=== PATIENT | male | born 1955 | race Caucasian/White ===

== ENCOUNTER 2018-07-28 06:48 | Inpatient (IN) | payer OTHER ==
[2018-07-28] MEDS ORDERED: CEFAZOLIN 1 GM INJ (07:00)
[2018-07-28] MEDS ORDERED: DEXAMETHASONE 4 MG/ML 5 ML INJ (07:00)
[2018-07-28] MEDS ORDERED: ONDANSETRON 4 MG INJ (07:00)
[2018-07-28] MEDS ORDERED: ONDANSETRON 4 MG INJ IV ×2 (08:00→12:30)
[2018-07-28] MEDS ORDERED: IPRATROPIUM (NEB) 0.5 MG/2.5 ML AMP HHN ×2 (08:00→12:30)
[2018-07-28] MEDS ORDERED: LABETALOL HCL 20MG INJ IV ×2 (08:00→12:30)
[2018-07-28] MEDS ORDERED: LEVALBUTEROL (NEB) 1.25 MG/0.5 ML AMP HHN ×2 (08:00→12:30)
[2018-07-28] MEDS ORDERED: MEPERIDINE 25 MG INJ IV ×2 (08:00→12:30)
[2018-07-28] MEDS ORDERED: DIPHENHYDRAMINE 50 MG INJ IV ×2 (08:00→12:30)
[2018-07-28] MEDS ORDERED: HYDROmorphONE 1 MG/5 ML IV SYRINGE IV ×3 (08:00)
[2018-07-28] MEDS ORDERED: FENTAnyl 50 MCG/ML VIAL IV ×3 (08:00→12:30)
[2018-07-28] MEDS ORDERED: hydrALAzine 20 MG INJ IV ×2 (08:00→12:30)
[2018-07-28] MEDS ORDERED: FENTAnyl 50 MCG/ML VIAL ×2 (08:01→09:09)
[2018-07-28] MEDS ORDERED: MIDAZOLAM 1 MG/ML 2 ML INJ (08:02)
[2018-07-28] MEDS ORDERED: METOCLOPRAMIDE 10 MG INJ (08:04)
[2018-07-28] MEDS ORDERED: ETOMIDATE 20 MG INJ (08:58)
[2018-07-28] MEDS ORDERED: LIDOCAINE 2% (SDV) 5 ML INJ (08:58)
[2018-07-28] MEDS ORDERED: SUCCINYLCHOLINE CHLORIDE 100 MG/5 ML SYG IV (08:58)
[2018-07-28] MEDS ORDERED: ROCURONIUM 50 MG INJ (08:58)
[2018-07-28] MEDS ORDERED: POLYMYXIN/BACITRACIN 1L IRRIG (09:41)
[2018-07-28] MEDS: GELATIN SIZE 100 SPONGE (09:41)
[2018-07-28] MEDS: THROMBIN 5000 UNIT VIAL (09:41)
[2018-07-28] MEDS: ROPIVACAINE 0.5 % 30 ML VIAL (10:48)
[2018-07-28] MEDS ORDERED: ROPIVACAINE 0.5 % 30 ML VIAL (10:50)
[2018-07-28] MEDS ORDERED: HYDROmorphONE 2 MG/ML SYG (11:44)
[2018-07-28] MEDS ORDERED: LORAZEPAM 2 MG INJ IV (12:30)
[2018-07-28] MEDS ORDERED: HYDROmorphONE 0.5 MG/0.5 ML SYG IV ×3 (12:30)
[2018-07-28] MEDS ORDERED: MIDAZOLAM 1 MG/ML 2 ML INJ IV (12:30)
[2018-07-28] MEDS ORDERED: HALOPERIDOL 5 MG INJ IV (12:30)
[2018-07-28] MEDS ORDERED: NALOXONE (0.4 MG/ML) INJ IV (13:00)
[2018-07-28] MEDS ORDERED: NACL 0.9% 3 ML SYG IV (13:00)
[2018-07-28] MEDS: DOCUSATE SODIUM 100 MG CAP PO ×2 (13:00→21:37)
[2018-07-28] MEDS: FENTAnyl 50 MCG/ML VIAL IV (13:03)
[2018-07-28] MEDS: CEFAZOLIN 2 GM/50 ML (PMX) 50 ML IVPB ×2 (13:41→21:38)
[2018-07-28] MEDS: NS + KCL 20 MEQ 1,000 ML IV ×2 (13:42→23:00)
[2018-07-28] MEDS: HYDROmorphONE 0.2 MG/ML PCA IV ×2 (14:02→18:38)
[2018-07-29] MEDS: HYDROmorphONE 0.2 MG/ML PCA IV ×4 (01:24→23:37)
[2018-07-29] MEDS: HYDROCODONE/APAP (5/325) TAB PO (01:36)
[2018-07-29] MEDS: KETOROLAC 30 MG INJ IV (04:46)
[2018-07-29 05:33] LABS: HEMATOCRIT 36.2 % (42.0-52.0); HEMOGLOBIN 12.3 g/dl (14.0-18.0)
[2018-07-29] MEDS: CEFAZOLIN 2 GM/50 ML (PMX) 50 ML IVPB ×3 (06:04→21:04)
[2018-07-29 06:08] LABS: ANION GAP 8 (5-13); BLOOD UREA NITROGEN 17 mg/dl (7-20); CALCIUM 8.8 mg/dl (8.4-10.2); CARBON DIOXIDE 25 mmol/L (21-31); CHLORIDE 106 mmol/L (97-110); CREATININE 0.91 mg/dl (0.61-1.24); Estimated GFR > 60 mL/min (>60); GLUCOSE 123 mg/dl (70-220); POTASSIUM 4.8 mmol/L (3.5-5.1); SODIUM 139 mmol/L (135-144)
[2018-07-29] MEDS: DOCUSATE SODIUM 100 MG CAP PO ×2 (10:12→21:05)
[2018-07-29] MEDS: NS + KCL 20 MEQ 1,000 ML IV ×3 (10:13→21:05)
[2018-07-29] MEDS ORDERED: BENAZEPRIL PO (12:00)
[2018-07-29] MEDS ORDERED: AMLODIPINE BESYLATE PO (12:00)
[2018-07-29] MEDS ORDERED: [UNRECOGNIZED DRUG - OTHER] PO (12:00)
[2018-07-29] MEDS: BENAZEPRIL 20 MG TAB PO (12:35)
[2018-07-29] MEDS: AMLODIPINE 10 MG TAB PO (12:36)
[2018-07-29] MEDS ORDERED: BENAZEPRIL 40 MG TAB PO (13:00)
[2018-07-30] MEDS: NS + KCL 20 MEQ 1,000 ML IV ×3 (05:00→18:33)
[2018-07-30] MEDS: CEFAZOLIN 2 GM/50 ML (PMX) 50 ML IVPB ×3 (06:26→21:47)
[2018-07-30] MEDS: LEVOTHYROXINE 100 MCG TAB PO (06:27)
[2018-07-30] MEDS: HYDROmorphONE 0.2 MG/ML PCA IV ×3 (06:39→18:25)
[2018-07-30] MEDS: BENAZEPRIL 20 MG TAB PO (09:39)
[2018-07-30] MEDS: AMLODIPINE 10 MG TAB PO (09:39)
[2018-07-30] MEDS: DOCUSATE SODIUM 100 MG CAP PO ×2 (09:39→21:46)
[2018-07-30] MEDS: AL HYDROX/MG HYDROX/SIMETH 30 ML CUP PO (21:46)
[2018-07-31] MEDS: HYDROmorphONE 0.2 MG/ML PCA IV ×2 (01:37→07:46)
[2018-07-31 05:35] LABS: ADD MAN DIFF? NO
[2018-07-31 05:44] LABS: WHITE BLOOD COUNT 13.7 10^3/ul (4.8-10.8)
[2018-07-31 05:44] LABS: ABNORMAL IP MESSAGE 1; BASOPHILS % 0.2 % (0.0-2.0); EOSINOPHILS # 0.1 10^3/ul (0.0-0.5); EOSINOPHILS % 0.6 % (0.0-7.0); HEMOGLOBIN 11.5 g/dl (14.0-18.0); LYMPHOCYTES # 1.8 10^3/ul (0.8-2.9); LYMPHOCYTES % 13.1 % (15.0-51.0); MEAN CORPUSCULAR HEMOGLOBIN 30.6 pg (29.0-33.0); MEAN CORPUSCULAR HGB CONC 32.9 g/dl (32.0-37.0); MEAN CORPUSCULAR VOLUME 93.1 fl (82.0-101.0); MEAN PLATELET VOLUME 14.3 fl (7.4-10.4); MONOCYTE # 1.3 10^3/ul (0.3-0.9); MONOCYTES % 9.5 % (0.0-11.0); NEUTROPHIL # 10.4 10^3/ul (1.6-7.5); NEUTROPHILS % 76.1 % (39.0-77.0); PLATELET COUNT 115 10^3/UL (140-415); POSITIVE DIFF @See below; RED BLOOD COUNT 3.76 10^6/ul (4.70-6.10); RED CELL DISTRIBUTION WIDTH 12.9 % (11.5-14.5)
[2018-07-31 05:57] LABS: ANION GAP 8 (5-13); BLOOD UREA NITROGEN 14 mg/dl (7-20); CALCIUM 9.1 mg/dl (8.4-10.2); CARBON DIOXIDE 28 mmol/L (21-31); CHLORIDE 98 mmol/L (97-110); CREATININE 0.72 mg/dl (0.61-1.24); Estimated GFR > 60 mL/min (>60); GLUCOSE 97 mg/dl (70-220); POTASSIUM 4.3 mmol/L (3.5-5.1); SODIUM 134 mmol/L (135-144)
[2018-07-31] MEDS: NS + KCL 20 MEQ 1,000 ML IV (06:29)
[2018-07-31] MEDS: LEVOTHYROXINE 100 MCG TAB PO (06:29)
[2018-07-31] MEDS: CEFAZOLIN 2 GM/50 ML (PMX) 50 ML IVPB ×2 (06:30→14:47)
[2018-07-31] MEDS: DOCUSATE SODIUM 100 MG CAP PO ×2 (09:28→20:58)
[2018-07-31] MEDS: AMLODIPINE 10 MG TAB PO (09:29)
[2018-07-31] MEDS: BENAZEPRIL 20 MG TAB PO (09:29)
[2018-07-31] MEDS: AL HYDROX/MG HYDROX/SIMETH 30 ML CUP PO (11:12)
[2018-07-31] MEDS: HYDROCODONE/APAP (5/325) TAB PO ×4 (14:51→23:40)
[2018-07-31] MEDS: KETOROLAC 30 MG INJ IV ×2 (14:59→20:59)
[2018-08-01] MEDS: HYDROCODONE/APAP (5/325) TAB PO ×3 (02:35→12:16)
[2018-08-01] MEDS: AL HYDROX/MG HYDROX/SIMETH 30 ML CUP PO (02:35)
[2018-08-01 05:40] LABS: ADD MAN DIFF? NO
[2018-08-01 05:47] LABS: ABNORMAL IP MESSAGE 1; BASOPHILS % 0.3 % (0.0-2.0); EOSINOPHILS # 0.1 10^3/ul (0.0-0.5); EOSINOPHILS % 1.2 % (0.0-7.0); HEMATOCRIT 35.3 % (42.0-52.0); HEMOGLOBIN 11.7 g/dl (14.0-18.0); LYMPHOCYTES # 1.4 10^3/ul (0.8-2.9); LYMPHOCYTES % 12.6 % (15.0-51.0); MEAN CORPUSCULAR HEMOGLOBIN 30.8 pg (29.0-33.0); MEAN CORPUSCULAR HGB CONC 33.1 g/dl (32.0-37.0); MEAN CORPUSCULAR VOLUME 92.9 fl (82.0-101.0); MEAN PLATELET VOLUME 13.9 fl (7.4-10.4); MONOCYTE # 0.9 10^3/ul (0.3-0.9); MONOCYTES % 7.8 % (0.0-11.0); NEUTROPHIL # 8.8 10^3/ul (1.6-7.5); NEUTROPHILS % 77.5 % (39.0-77.0); PLATELET COUNT 134 10^3/UL (140-415); POSITIVE DIFF @See below; RED CELL DISTRIBUTION WIDTH 12.8 % (11.5-14.5)
[2018-08-01 05:47] LABS: WHITE BLOOD COUNT 11.4 10^3/ul (4.8-10.8)
[2018-08-01] MEDS: LEVOTHYROXINE 100 MCG TAB PO (06:00)
[2018-08-01 06:11] LABS: ANION GAP 4 (5-13); BLOOD UREA NITROGEN 17 mg/dl (7-20); CALCIUM 9.3 mg/dl (8.4-10.2); CARBON DIOXIDE 32 mmol/L (21-31); CHLORIDE 101 mmol/L (97-110); CREATININE 0.89 mg/dl (0.61-1.24); Estimated GFR > 60 mL/min (>60); GLUCOSE 109 mg/dl (70-220); MAGNESIUM 2.4 mg/dl (1.7-2.5); SODIUM 137 mmol/L (135-144)
[2018-08-01] MEDS: morphine SULFATE/PF (2 MG/2 ML) SYG IV (07:48)
[2018-08-01] MEDS: DOCUSATE SODIUM 100 MG CAP PO (09:15)
[2018-08-01] MEDS: BENAZEPRIL 20 MG TAB PO (09:16)
[2018-08-01] MEDS: HYDROmorphONE 0.5 MG/0.5 ML SYG IV (09:16)
[2018-08-01] MEDS: AMLODIPINE 10 MG TAB PO (09:16)
== END 2018-08-01 15:42 | disposition home or self-care (01) | DRG 460 ==
LOC: REC 06:48 → MS1 07-29 15:29 → ICU 12:54
PROC: 0RG70K1 Fusion of 2 to 7 Thoracic Vertebral Joints with Nonautologous Tissue Substitute, Posterior Approach, Posterior Column, Open Approach (ICD-10-PCS; principal; 2018-07-28 08:00)
PROC: 4A11X4G Monitoring of Peripheral Nervous Electrical Activity, Intraoperative, External Approach (ICD-10-PCS; 2018-07-28 08:00)
DX: M50.03 Cervical disc disorder with myelopathy, cervicothoracic region (principal); M50.13 Cervical disc disorder with radiculopathy, cervicothoracic region; I11.0 Hypertensive heart disease with heart failure; I50.9 Heart failure, unspecified; E78.5 Hyperlipidemia, unspecified; I25.2 Old myocardial infarction; Z95.1 Presence of aortocoronary bypass graft; I25.10 Atherosclerotic heart disease of native coronary artery without angina pectoris; G62.9 Polyneuropathy, unspecified; E03.9 Hypothyroidism, unspecified; Z90.79 Acquired absence of other genital organ(s); Z90.49 Acquired absence of other specified parts of digestive tract; F17.210 Nicotine dependence, cigarettes, uncomplicated; Z98.1 Arthrodesis status
CPT/HCPCS: 72072; 72125; 80048; 83735; 85014; 85018; 85025; 86850; 86900; 86901; 87081; 88300; 88304; 88311; 97116; 97163; 97530